=== PATIENT | female | born 1975 | race Caucasian/White ===

== ENCOUNTER 2017-11-01 14:50 | Emergency (ER) | payer MEDICAID ==
[2017-11-01 16:54] LABS: URINE BLOOD (Dip) POC 2+ (NEGATIVE); URINE GLUCOSE (Dip) POC Negative (NEGATIVE); URINE KETONES (Dip) POC Negative (NEGATIVE); URINE LEUKOCYTE EST (Dip) POC 1+ (NEGATIVE); URINE NITRITE (Dip) POC Negative (NEGATIVE); URINE TOTAL PROTEIN POC Negative (NEGATIVE)
[2017-11-01] MEDS: ACETAMINOPHEN 325 MG TAB PO (17:04)
[2017-11-01] MEDS: CIPROFLOXACIN 250 MG TAB PO (17:12)
== END 2017-11-01 17:30 | disposition home or self-care (01) ==
LOC: FTE 14:50
DX: N39.0 Urinary tract infection, site not specified (principal)
CPT/HCPCS: 81003; 81025; 99283